=== PATIENT | male | born 1980 | race Caucasian/White ===

== ENCOUNTER 2020-08-01 20:57 | Emergency (ER) | payer BC, MEDICAID, SELFPAY ==
[2020-08-01 21:03] VITALS: BMI 24.3
--- NOTE | 2020-08-01 21:05 | ED_ITS ---
HPI - Psych General Chief Complaint: Psychiatric Symptoms Stated Complaint: crisis si Time Seen by Provider: 08/01/20 21:05 Source: patient and EMS Mode of arrival: EMS Limitations: other (agitated and uncooperative) History of Present Illness MD complaint: suicidal ideation, feels depressed, anxiety, substance abuse and alcohol abuse Onset (ago): day(s) Duration: constant Relieving factors: none Exacerbating factors: other (?son just hurt himself vs he killed himself ) Context: recent alcohol abuse and recent drug abuse Associated psychiatric symptoms: depression and suicidal ideation Associated symptoms: denies other symptoms Treatments prior to arrival: placed on mental health hold If self harm: other (patient told EMS he was going to hang himself, to me he kept stating I'm good. I'm good. ) Related Data Allergies Allergy/AdvReac Type Severity Reaction Status Date / Time No Known Allergies Allergy Verified 08/01/20 21:11 Review of Systems Review of Systems: ROS unable to be obtained due to patient being uncooperative [facility] Past Medical History Source: unable to obtain Medical History (Updated 08/02/20 @ 04:52 by Susan Quezada DO) Substance abuse Social History Social History (Updated 08/01/20 @ 21:16 by Susan Quezada DO) Alcohol intake: current Alcohol intake frequency: 0-2 drinks per day Alcohol type: beer Smoking Status: Current every day smoker Smoked in Last 30 Days: Yes Use of substances other than those prescribed or required for medical reasons: Yes Substance Use Type: Marijuana Substance Use Frequency: Daily Advance Directives: No Advance Directives Information Provided: Yes Physical Exam Vital Signs: Vital Signs: Last Vital Signs Temp 97.8 F 08/01/20 23:55 Pulse 72 08/01/20 23:55 Resp 16 08/02/20 03:55 BP 101/55 L 08/01/20 23:55 Pulse Ox 98 08/01/20 23:55 Body Mass Index 24.3 Appearance: Alert. Oriented X3. ETOH odor, talking very loudly, playing rap music on his tablet Eyes: Pupils equal, round and reactive to light. ENT: Pharynx normal. Neck: Normal inspection. Neck supple. CVS: tachycardic heart rate and rhythm. Pulses normal. Respiratory: No respiratory distress. Breath sounds normal. Abdomen: Soft and nontender. Skin: Skin warm and clammy. Normal skin color. Normal skin turgor. Extremities: No lower extremity edema. No calf ttp Neuro: Oriented X 3. No motor deficit. No sensory deficit. CN 2-12 intact Psych: + anxiety, depression, denies SI, no HI Course Course Course Narrative: Physician observation started at 11:12pm. Patient placed in physician observation because the patient needed more time for metabolization of alcohol and to see and be evaluated for the need for psych admission. At the time observation was started the patient's vitals were stable, patient is alert and o riented but slightly agitated, Neuro: nonfocal, CV RRR, Lungs clear signed out pending CARE team consult MDM - Psych MDM Narrative Medical decision making narrative: 40 yo male admits to smoking THC and drinking ETOH - upset over son who ?suicide attempt I am unable to tell if his son actually , but he was threatening to hang himself tonight, labs, [facility] consult PO ativan for anxiety Lab Data Result diagrams: 08/01/20 22:06 08/01/20 22:06 Labs: Lab Results 08/01/20 08/01/20 08/01/20 Range/Units 22:06 22:06 22:06 WBC 4.7 L (4.8-10.8) X10*3/uL RBC 4.37 L (4.60-5.80) X10*6/uL Hgb 13.7 L (14.0-18.0) g/dl Hct 41.1 L (42-52) % MCV 94.1 (80-98) fL MCH 31.4 (27.0-33.0) pg MCHC 33.3 (31.0-36.0) g/dl RDW 14.2 (11.0-16.0) % Plt Count 211 (160-400) X10*3/uL MPV 10.5 (9.4-12.4) fL Immature Gran % (Auto) 0.2 (0.0-0.4) % Neut % (Auto) 40.6 L (45-73) % Lymph % (Auto) 50.2 H (20-40) % Wake % (Auto) 6.4 (2-11) % Eos % (Auto) 1.7 (0-4) % Baso % (Auto) 0.9 (0-2) % Lymph # (Auto) 2.4 (1.2-4.9) X10*3/uL Wake # (Auto) 0.3 (0.1-1.2) X10*3/uL Eos # (Auto) 0.1 (0.0-0.4) X10*3/uL Baso # (Auto) 0.0 (0.0-0.2) X10*3/uL Abs Immat Gran (auto) 0.01 (0.00-0.03) X10*3/uL Absolute Neuts (auto) 1.9 L (2.0-8.3) X10*3/uL Absolute Nucleated RBC 0.000 (0.0-0.012) X10*3/uL Nucleated RBC % (auto) 0.0 (0.0-0.2) /100WBC Sodium 142 (135-145) mmol/L Potassium 4.0 (3.3-5.1) mmol/L Chloride 105 (96-108) mmol/L Carbon Dioxide 25 (22-29) mmol/L Anion Gap 16 (12-20) BUN 17 H (9-16) mg/dL Creatinine 1.11 (0.5-1.4) mg/dL Estim Creat Clear Calc 83.8 Estimated GFR > 60 Random Glucose 80 (60-115) mg/dL Calcium 9.3 (8.4-10.2) mg/dL Total Bilirubin 0.4 (0.0-1.0) mg/dL Direct Bilirubin 0.2 (0.0-0.5) mg/dL AST 76 H (5-37) U/L ALT 59 H (0-40) U/L Alkaline Phosphatase 75 (39-117) U/L Total Protein 8.4 H (6.5-8.0) g/dL Albumin 4.8 (3.5-5.0) g/dL Urine Opiates Screen (Not Detect) Ur Barbiturates Screen (Not Detect) Ur Phencyclidine Scrn (Not Detect) Ur Amphetamines Screen (Not Detect) U Benzodiazepines Scrn (Not Detect) Urine Cocaine Screen (Not Detect) U Marijuana (THC) Screen (Not Detect) Ethyl Alcohol mg/dL COVID-19 (JC) Negative (Negative) COVID-19 Clin Com See Note 08/01/20 08/01/20 Range/Units 22:06 23:01 WBC (4.8-10.8) X10*3/uL RBC (4.60-5.80) X10*6/uL Hgb (14.0-18.0) g/dl Hct (42-52) % MCV (80-98) fL MCH (27.0-33.0) pg MCHC (31.0-36.0) g/dl RDW (11.0-16.0) % Plt Count (160-400) X10*3/uL MPV (9.4-12.4) fL Immature Gran % (Auto) (0.0-0.4) % Neut % (Auto) (45-73) % Lymph % (Auto) (20-40) % Wake % (Auto) (2-11) % Eos % (Auto) (0-4) % Baso % (Auto) (0-2) % Lymph # (Auto) (1.2-4.9) X10*3/uL Wake # (Auto) (0.1-1.2) X10*3/uL Eos # (Auto) (0.0-0.4) X10*3/uL Baso # (Auto) (0.0-0.2) X10*3/uL Abs Immat Gran (auto) (0.00-0.03) X10*3/uL Absolute Neuts (auto) (2.0-8.3) X10*3/uL Absolute Nucleated RBC (0.0-0.012) X10*3/uL Nucleated RBC % (auto) (0.0-0.2) /100WBC Sodium (135-145) mmol/L Potassium (3.3-5.1) mmol/L Chloride (96-108) mmol/L Carbon Dioxide (22-29) mmol/L Anion Gap (12-20) BUN (9-16) mg/dL Creatinine (0.5-1.4) mg/dL Estim Creat Clear Calc Estimated GFR Random Glucose (60-115) mg/dL Calcium (8.4-10.2) mg/dL Total Bilirubin (0.0-1.0) mg/dL Direct Bilirubin (0.0-0.5) mg/dL AST (5-37) U/L ALT (0-40) U/L Alkaline Phosphatase (39-117) U/L Total Protein (6.5-8.0) g/dL Albumin (3.5-5.0) g/dL Urine Opiates Screen Not Detected (Not Detect) Ur Barbiturates Screen Not Detected (Not Detect) Ur Phencyclidine Scrn Not Detected (Not Detect) Ur Amphetamines Screen Not Detected (Not Detect) U Benzodiazepines Scrn Not Detected (Not Detect) Urine Cocaine Screen POSITIVE H (Not Detect) U Marijuana (THC) Screen POSITIVE H (Not Detect) Ethyl Alcohol 282 mg/dL COVID-19 (JC) (Negative) COVID-19 Clin Com Discharge Plan Discharge Clinical Impression: Acute anxiety, Cocaine abuse Alcohol intoxication Qualifiers: Complication of substance-induced condition: uncomplicated Qualified Code(s): F10.920 - Alcohol use, unspecified with intoxication, uncomplicated
[2020-08-01 21:08] VITALS: BP 106/61; PULSE 86; RESP 18; TEMP 36.9; O2SAT 96
--- NOTE | 2020-08-01 21:48 | PC.NURSE ---
please call [facility] office when/if patient is to be discharged. Transportation is sometimes available. tel. [phone] Pt has a bed on hold in longterm at [facility].
[2020-08-01 21:49] VITALS: BP 114/56; RESP 18; TEMP 36.9; O2SAT 96
[2020-08-01] MEDS: LORazepam 1 MG TABLET 2 MG PO (22:13)
[2020-08-01 22:26] LABS: MANUAL DIFF FLAG NO
[2020-08-01 22:41] LABS: Basophils Percent Auto 0.9 % (0-2); COVID-19 Test Negative (Negative); Eosinophils Absolute Auto 0.1 X10*3/uL (0.0-0.4); Eosinophils Percent Auto 1.7 % (0-4); Hematocrit 41.1 % (42-52); Hemoglobin 13.7 g/dl (14.0-18.0); IDNOW Serial# 9DD0AD1C; Imm Gran Abs Auto 0.01 X10*3/uL (0.00-0.03); Imm Gran Pct Auto 0.2 % (0.0-0.4); Lymphocytes Absolute Auto 2.4 X10*3/uL (1.2-4.9); Lymphocytes Percent Auto 50.2 % (20-40); Mean Corpuscular HGB Conc 33.3 g/dl (31.0-36.0); Mean Corpuscular Hemoglobin 31.4 pg (27.0-33.0); Mean Corpuscular Volume 94.1 fL (80-98); Mean Platelet Volume 10.5 fL (9.4-12.4); Monocytes Absolute Auto 0.3 X10*3/uL (0.1-1.2); Monocytes Percent Auto 6.4 % (2-11); Neutrophils Absolute Auto 1.9 X10*3/uL (2.0-8.3); Neutrophils Percent Auto 40.6 % (45-73); Platelet Count 211 X10*3/uL (160-400); Red Blood Count 4.37 X10*6/uL (4.60-5.80); Red Cell Distribution Width 14.2 % (11.0-16.0); White Blood Count 4.7 X10*3/uL (4.8-10.8)
[2020-08-01 22:44] LABS: Ethanol 282 mg/dL
[2020-08-01 22:50] LABS: Alanine Aminotransferase 59 U/L (0-40); Albumin Level 4.8 g/dL (3.5-5.0); Alkaline Phosphatase 75 U/L (39-117); Anion Gap 16 (12-20); Aspartate Amino Transferase 76 U/L (5-37); Bilirubin Direct 0.2 mg/dL (0.0-0.5); Bilirubin Total 0.4 mg/dL (0.0-1.0); Blood Urea Nitrogen 17 mg/dL (9-16); Calcium 9.3 mg/dL (8.4-10.2); Carbon Dioxide 25 mmol/L (22-29); Chloride 105 mmol/L (96-108); Creatinine Clr Calc Pharmacy 83.8; Estimated Glomerular Filt Rate > 60; Glucose Random 80 mg/dL (60-115); Sodium 142 mmol/L (135-145); Total Protein 8.4 g/dL (6.5-8.0)
--- NOTE | 2020-08-01 23:20 | PC.NURSE ---
Blood work and ua completed. per CARE team, pt will be evaluated at 0100. BAL 282 at 2300.
[2020-08-01 23:53] LABS: Amphetamine Screen Urine Not Detected (Not Detect); Barbiturates, Urine Not Detected (Not Detect); Benzodiazepines Screen Urine Not Detected (Not Detect); Cannabinoid Screen Urine POSITIVE (Not Detect); Cocaine Screen Urine POSITIVE (Not Detect); Opiate Screen Urine Not Detected (Not Detect); Phencyclidine Screen Urine Not Detected (Not Detect)
[2020-08-01 23:55] VITALS: BP 101/55; PULSE 72; RESP 18; TEMP 36.6; O2SAT 98
[2020-08-02 02:00] VITALS: RESP 16
--- NOTE | 2020-08-02 02:16 | MHC.CARE ---
Pt is a 40 year old male who arrived to ED via ambulance from [facility] on a [employer] by [employer] secondary to making suicidal statements. Details were unclear, as pt arrived intoxicated and [employer] that accompanied pt to the hospital had limited information and specific details. 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 Pt was loud, agitated, and repeatedly yelling I'm good, I'm good, I'm not suicidal, who said that I was, my son did suicide, not me, I'm fucking leaving man, etc. Pt was unsteady on his feet, sweating, and was unable to stand up straight or lift his head to make eye contact. Pt was reluctant to changeover and required a lot of coaxing by MD grey, RNs, ERTs, and this development writer. Pt eventually changed over and this development writer discussed plan for getting labs to see how intoxicated he is and then he can be seen for an assessment. Pt reported to this development writer that he had two beers and smoked three blunts prior to arrival, and when asked for clarification about the size of the beers pt indicated that they were the very large ones. BAL 282 @ 22:03 MD ordered 2mg ativan at 22:13 for agitation. Pt was offered a stretcher and a room to stay in, however he insisted on staying in a wheelchair in the hallway. Pt remained awake and agitated until approximately 1am, when he fell asleep while eating crackers. This development writer discussed pt's level of intoxication and agitation prior to falling asleep, making judgment call to wait until the morning to screen and assess pt for safety with regards to statements made prior to arrival. Pt has [employer] PPO and Medicaid. CARE team will follow up with pt in the morning.
[2020-08-02 03:55] VITALS: RESP 16
--- NOTE | 2020-08-02 05:00 | PC.NURSE ---
PT SLEEPING. SITTER MAINTAINED
[2020-08-02 06:00] VITALS: RESP 16
--- NOTE | 2020-08-02 06:57 | PC.NURSE ---
received report from Debra gallegos pt is currently asleep, respirations even and unlabored. sitter in place
--- NOTE | 2020-08-02 08:06 | PC.NURSE ---
pt awake, yelling for his methadone, faxed the release form to [employer] waiting a call back pt denies si/hi at this time, pt does not want to eat breakfast states he is not hungry sitter in place
--- NOTE | 2020-08-02 09:28 | PC.NURSE ---
tennille from care team at bedside speaking to pt
--- NOTE | 2020-08-02 09:37 | MHC.CARE ---
Met with Pt at approximately 0930, pt is alert and oriented and not under the influence of any substance. Pt denied any thoughts of harm to self or others. Pt stated that he has a home to go to and is staying at a local [employer] here in [facility]. Pt stated that he has a support system in place in the form of his Mother who resides in [place]. Pt stated that he had used drugs, due to the suicide by hanging of his son in [place]. Pt stated that even though this tragedy occurred, he has no thoughts of harm to himself nor has he. Upon meeting with the pt, I met with the Pt[facility] ED [facility], and it was determined that the pt will be discharged to his home.
== END 2020-08-02 09:51 | disposition home or self-care (01) ==
PROVIDERS: Emergency Provider Emergency Medicine
DX: F10.120 Alcohol abuse with intoxication, uncomplicated (principal); Y90.8 Blood alcohol level of 240 mg/100 ml or more; F41.9 Anxiety disorder, unspecified; F14.10 Cocaine abuse, uncomplicated; R45.851 Suicidal ideations; F12.10 Cannabis abuse, uncomplicated; F11.20 Opioid dependence, uncomplicated; F17.200 Nicotine dependence, unspecified, uncomplicated; Z20.822 Contact with and (suspected) exposure to COVID-19; Z72.89 Other problems related to lifestyle; Z63.4 Disappearance and death of family member
CPT/HCPCS: 36415; 80048; 80076; 80307; 80320; 85025; 87635; 99285